=== PATIENT | female | born 1985 | race African-American/Black ===

== ENCOUNTER 2016-10-22 15:56 | Emergency (ER) | payer OTHER ==
[~2016-10-22] VITALS: Ht 160 cm; Wt 70.0 kg
[~2016-10-22 15:56] MED LIST: BACT800T5 PO; GLIM2 PO; METF500 PO
[2016-10-22 15:58] VITALS: BP 132/78; PULSE 92; RESP 16; TEMP 98; O2SAT 98
[2016-10-22] MEDS ORDERED: GLIM2TAB PO (16:29)
[2016-10-22] MEDS ORDERED: PANT20 PO (16:29)
--- NOTE | 2016-10-22 17:27 | PD ---
HPI Chief Complaint: ENT Complaint Time Seen by Provider: 17:27 Travel History International Travel<30 days: No Contact w/Intl Traveler<30days: No Traveled to known affect area: No History of Present Illness HPI Patient is a 31-year-old female at 19 weeks gestational age presenting with anterior neck mass. She states she has been off Depo-Provera for approximately one year and shortly after coming off of the medicines she felt like she had some swelling in her neck. This slowly gotten worse and larger. It started moving towards the right side of the neck up towards the ear. She reports that she has had discomfort over the last several days and feels it is getting larger. It is tender to palpation. He denies any trauma or injury. She states that her ear is been popping off and on today. She denies any pain in the throat or oropharynx. She denies any problems breathing, stridor or wheezing. She feels sometimes when she swallows that she feels the mass move and it is uncomfortable but not overtly painful or appearing her ability to swallow or clear secretions. She states it does sometimes get bigger and smaller over the last several months. She denies any fever or chills. She states she has had some weight loss without attempting to this year. She thinks she's been gaining weight normally during her however. She reports occasional intermittent episodes of palpitations but denies syncope or chest pain or shortness of breath. She denies any abdominal pain or change/ decrease in movement. No vaginal bleeding or discharge. PFSH Past Medical History Cardiovascular Problems: No Diabetes: Yes Endocrine: Yes Gastrointestinal Disorders: Yes (hernia sx) Genitourinary: No Musculoskeletal: No Neurologic: No Respiratory: No Past Surgical History Other Surgery: Yes (umbillical hernia) Social History Alcohol Use: No Tobacco Use: No Substance Use: No Allergies-Medications (Allergen,Severity, Reaction): Coded Allergies: No Known Allergies (Unverified , 12/28/15) Reported Meds & Prescriptions Reported Meds & Active Scripts Active Reported Protonix (Pantoprazole Sodium) 20 Mg Tab 20 Mg PO DAILY PRN Glimepiride 2 Mg Tab 2.5 Mg PO HS Take with breakfast or first main meal Review of Systems Except as stated in HPI: all other systems reviewed are Neg Physical Exam Narrative GENERAL: Well-developed and well-nourished adult female in no acute distress. SKIN: Warm and dry. Good turgor without tenting. HEAD: Normocephalic and atraumatic. EYES: PERRL bilaterally, 5mm. EOMI bilaterally. No injection or icterus present. No proptosis. Lids without edema or erythema. ENT: Bilateral ear canals are non-edematous/non-erythematous without otorrhea. Bilateral TMs have intact landmarks and without distortion, perforation, air- fluid level or erythema. Nasal mucosa pink and moist without discharge, septum intact and midline. Buccal mucosa pink and moist. Oropharynx free of erythema, tonsillar hypertrophy, masses, swelling, asymmetry and exudates. Uvula midline and airway patent. NECK: Thyroid is mildly enlarged diffusely. No nodules palpated. He does appear to be some extension of this laterally surrounding scalene muscles on the right. No nodularities palpated. Supple, no midline tenderness, crepitus or step-offs. Trachea midline, no JVD. Negative bilateral carotid bruits. No cervical or facial lymphadenopathy. CARDIOVASCULAR: Regular rate and rhythm without murmurs, rubs, clicks or gallops. Radial pulses 2+ bilaterally. RESPIRATORY: Clear to auscultation bilaterally with symmetrical rise and fall, no distress or use of accessory muscles. MUSCULOSKELETAL: No gait disturbances. Patient freely moving all four extremities spontaneously. Extremities without clubbing, cyanosis, or edema. No obvious deformities. NEUROLOGIC: CN II-XII grossly intact. Awake and alert. Motor grossly within normal limits. Normal speech. PSYCHIATRIC: Appropriate mood and affect; insight and judgment normal. Data Data Last Documented VS Vital Signs Date Time Temp Pulse Resp B/P Pulse Ox O2 Delivery O2 Flow Rate FiO2 10/22/16 15:58 98.0 92 16 132/78 98 Room Air Orders Electrocardiogram (10/22/16 17:28) Complete Blood Count With Diff (10/22/16 17:28) Comprehensive Metabolic Panel (10/22/16 17:28) Magnesium (Mg) (10/22/16 17:28) Thyroid Stimulating Hormone (10/22/16 17:28) Free T3 (10/22/16 17:28) Free Thyroxine (T4) (10/22/16 17:28) Electrocardiogram (10/22/16 18:03) Labs Laboratory Tests Test 10/22/16 17:40 White Blood Count 7.0 TH/MM3 Red Blood Count 4.02 MIL/MM3 Hemoglobin 11.5 GM/DL Hematocrit 34.1 % Mean Corpuscular Volume 84.8 FL Mean Corpuscular Hemoglobin 28.5 PG Mean Corpuscular Hemoglobin 33.6 % Concent Red Cell Distribution Width 13.7 % Platelet Count 278 TH/MM3 Mean Platelet Volume 8.3 FL Neutrophils (%) (Auto) 72.3 % Lymphocytes (%) (Auto) 21.4 % Monocytes (%) (Auto) 5.5 % Eosinophils (%) (Auto) 0.5 % Basophils (%) (Auto) 0.3 % Neutrophils # (Auto) 5.1 TH/MM3 Lymphocytes # (Auto) 1.5 TH/MM3 Monocytes # (Auto) 0.4 TH/MM3 Eosinophils # (Auto) 0.0 TH/MM3 Basophils # (Auto) 0.0 TH/MM3 CBC Comment DIFF FINAL Differential Comment Sodium Level 138 MEQ/L Potassium Level 3.2 MEQ/L Chloride Level 106 MEQ/L Carbon Dioxide Level 25.4 MEQ/L Anion Gap 7 MEQ/L Blood Urea Nitrogen 6 MG/DL Creatinine 0.63 MG/DL Estimat Glomerular Filtration 134 ML/MIN Rate Random Glucose 140 MG/DL Calcium Level 8.5 MG/DL Magnesium Level 2.1 MG/DL Total Bilirubin 0.2 MG/DL Aspartate Amino Transf 8 U/L (AST/SGOT) Alanine Aminotransferase 14 U/L (ALT/SGPT) Alkaline Phosphatase 40 U/L Total Protein 6.6 GM/DL Albumin 2.9 GM/DL Free Thyroxine 1.06 NG/DL Free Triiodothyronine (T3) 2.33 PG/ML pg/dL Thyroid Stimulating Hormone 1.140 uIU/ML [address] [place] [address] Medical Decision Making Medical Screen Exam Complete: Yes Emergency Medical Condition: Yes Differential Diagnosis Goiter versus thyroglossal duct cyst versus lymphadenopathy versus abscess Narrative Course Patient is a 31-year-old female who is currently 19 weeks presenting with what appears to be a large thyroid. This does extend towards the right. Vision states that it is symptoms a couple when she swallows but denies problems with her secretions or breathing. She is afebrile and nontoxic- appearing. She states she occasionally has palpitations and didn't feel like she was losing weight without attempting to over the last several months prior to becoming . She has no other complaints at this time. I consulted with my attending Dr. Mtz who also evaluated the patient. He states that he believes that this is mostly related to her thyroid and does not overly concerned for emergent pathology. Sent CBC, metabolic panel and thyroid studies and the patient was transferred for further evaluation. Please refer to Dr. Mtz's note for final disposition. Diagnosis Primary Impression: Thyroglossal duct cyst Condition: Stable Christopher Trejo III Oct 22, 2016 17:27
--- NOTE | 2016-10-22 17:36 | PD ---
Data Data Last Documented VS Vital Signs Date Time Temp Pulse Resp B/P Pulse Ox O2 Delivery O2 Flow Rate FiO2 10/22/16 15:58 98.0 92 16 132/78 98 Room Air Orders Electrocardiogram (10/22/16 17:28) Complete Blood Count With Diff (10/22/16 17:28) Comprehensive Metabolic Panel (10/22/16 17:28) Magnesium (Mg) (10/22/16 17:28) Thyroid Stimulating Hormone (10/22/16 17:28) Free T3 (10/22/16 17:28) Free Thyroxine (T4) (10/22/16 17:28) Electrocardiogram (10/22/16 18:03) Labs Laboratory Tests Test 10/22/16 17:40 White Blood Count 7.0 TH/MM3 Red Blood Count 4.02 MIL/MM3 Hemoglobin 11.5 GM/DL Hematocrit 34.1 % Mean Corpuscular Volume 84.8 FL Mean Corpuscular Hemoglobin 28.5 PG Mean Corpuscular Hemoglobin 33.6 % Concent Red Cell Distribution Width 13.7 % Platelet Count 278 TH/MM3 Mean Platelet Volume 8.3 FL Neutrophils (%) (Auto) 72.3 % Lymphocytes (%) (Auto) 21.4 % Monocytes (%) (Auto) 5.5 % Eosinophils (%) (Auto) 0.5 % Basophils (%) (Auto) 0.3 % Neutrophils # (Auto) 5.1 TH/MM3 Lymphocytes # (Auto) 1.5 TH/MM3 Monocytes # (Auto) 0.4 TH/MM3 Eosinophils # (Auto) 0.0 TH/MM3 Basophils # (Auto) 0.0 TH/MM3 CBC Comment DIFF FINAL Differential Comment Sodium Level 138 MEQ/L Potassium Level 3.2 MEQ/L Chloride Level 106 MEQ/L Carbon Dioxide Level 25.4 MEQ/L Anion Gap 7 MEQ/L Blood Urea Nitrogen 6 MG/DL Creatinine 0.63 MG/DL Estimat Glomerular Filtration 134 ML/MIN Rate Random Glucose 140 MG/DL Calcium Level 8.5 MG/DL Magnesium Level 2.1 MG/DL Total Bilirubin 0.2 MG/DL Aspartate Amino Transf 8 U/L (AST/SGOT) Alanine Aminotransferase 14 U/L (ALT/SGPT) Alkaline Phosphatase 40 U/L Total Protein 6.6 GM/DL Albumin 2.9 GM/DL Free Thyroxine 1.06 NG/DL Free Triiodothyronine (T3) 2.33 PG/ML pg/dL Thyroid Stimulating Hormone 1.140 uIU/ML 3rd Gen MDM Supervised Visit with ROSALINDA: Yes Narrative Course Patient care assumed by me from Christopher BARAHONA. Patient was initially placed in fast track but given that she is and apparently has neck mass was moved to [facility] for me to evaluate and see primarily. Patient appears well and in no apparent distress. She states there is a mass in the right side of her neck. Her thyroid appears to be smooth and there is minimally tender area running the length of her rhomboid muscle. I see no overlying erythema and minimally tender on the right anterior portion of her neck. Initially consideration given to infectious cause but she appears well, no fever, WBC normal and i see no physical exam evidence of infection. Thyroid nodule is possibility, thyroid tests normal. Can have US as an outpatient. No abdominal or vaginal complaints. I think the other and probably most likely possibility is a thyroglossal duct cyst. She is stable for discharge. Discussed follow up with OB and return to ED criteria. Diagnosis Primary Impression: Thyroglossal duct cyst Disposition: 01 DISCHARGE HOME Condition: Stable Tristan Mtz MD Oct 22, 2016 17:36
[2016-10-22 18:01] LABS: AUTOMATED NEUTROPHIL # 5.1 TH/MM3 (1.8-7.7); BASOPHIL % 0.3 % (0.0-2.0); EOSINOPHIL % 0.5 % (0.0-4.0); HEMATOCRIT 34.1 % (35.0-46.0); HEMO FLAGS DIFF FINAL; LYMPH % 21.4 % (9.0-44.0); LYMPHOCYTE # 1.5 TH/MM3 (1.0-4.8); MEAN CELL VOLUME 84.8 FL (80.0-100.0); MEAN CORPUSCULAR HEMOGLOBIN 28.5 PG (27.0-34.0); MEAN CORPUSCULAR HGB CONC 33.6 % (32.0-36.0); MONO % 5.5 % (0.0-8.0); NEUT % 72.3 % (16.0-70.0); PLATELET COUNT 278 TH/MM3 (150-450); RED BLOOD COUNT 4.02 MIL/MM3 (4.00-5.30); RED CELL DISTRIBUTION WIDTH 13.7 % (11.6-17.2)
[2016-10-22 18:35] LABS: ANION GAP 7 MEQ/L (5-15); AST (GOT) 8 U/L (15-37); BICARBONATE 25.4 MEQ/L (21.0-32.0); BLOOD UREA NITROGEN 6 MG/DL (7-18); CHLORIDE 106 MEQ/L (98-107); GLOMERULAR FILTRATION RATE 134 ML/MIN (>89); MAGNESIUM 2.1 MG/DL (1.5-2.5); POTASSIUM 3.2 MEQ/L (3.5-5.1); SODIUM (NA) 138 MEQ/L (136-145)
[2016-10-22 18:38] LABS: ALKALINE PHOSPHATASE 40 U/L (45-117); ALT (GPT) 14 U/L (10-53); TOTAL BILIRUBIN ADULT 0.2 MG/DL (0.2-1.0)
[2016-10-22 18:44] LABS: FREE T3 2.33 PG/ML (2.18-3.98); FREE T4 1.06 NG/DL (0.76-1.46)
--- NOTE | 2016-10-24 20:50 | EKG ---
Date Performed: 10/22/2016 Time Performed: 18:02:44 PTAGE: 31 years EKG: Sinus rhythm PREVIOUS TRACING : 10/22/2016 17.46 Compared to the previous tracing, change in the preco rdial QRS most likely due to lead reversal on the previous DOCTOR: Richie Dillard Interpretating Date/Time 10/24/2016 20:48:29
--- NOTE | 2016-10-24 20:52 | EKG ---
Date Performed: 10/22/2016 Time Performed: 17:46:25 PTAGE: 31 years EKG: Sinus rhythm Possible limb lead reversal ABNORMAL ECG PREVIOUS TRACING : 10/22/2016 17.45 DOCTOR: Richie Dillard Interpretating Date/Time 10/24/2016 20:51:52
== END 2016-10-22 19:16 | disposition home or self-care (01) ==
LOC: NEPB 15:56 → NEPC 19:16
DX: O99.282 Endocrine, nutritional and metabolic diseases complicating pregnancy, second trimester (principal); Q89.2 Congenital malformations of other endocrine glands; R22.1 Localized swelling, mass and lump, neck; E11.9 Type 2 diabetes mellitus without complications; Z79.84 Long term (current) use of oral hypoglycemic drugs; Z87.19 Personal history of other diseases of the digestive system; Z3A.19 19 weeks gestation of pregnancy
CPT/HCPCS: 80053; 83735; 84439; 84443; 84481; 85025; 93005

== ENCOUNTER → 2016-12-20 | Outpatient (CLI) | payer OTHER ==
[~2016-12-20] MED LIST changes: -BACT800T5 PO; -GLIM2 PO; +GLIM2TAB PO; -METF500 PO; +PANT20 PO
== END ==
LOC: HPND 10:12
PROVIDERS: ATTEND Obstetrics & Gynecology
DX: O28.3 Abnormal ultrasonic finding on antenatal screening of mother (principal); O24.919 Unspecified diabetes mellitus in pregnancy, unspecified trimester; Z79.84 Long term (current) use of oral hypoglycemic drugs; Z3A.00 Weeks of gestation of pregnancy not specified
CPT/HCPCS: 76811; 76825; 76827; 93325